=== PATIENT | female | born 1970 | race Caucasian/White ===

== ENCOUNTER 2017-10-06 11:28 | Day surgery (SDC) | payer BC ==
[~2017-10-06] VITALS: Ht 172.7 cm; Wt 74.8 kg
--- NOTE | ~2017-10-06 | OP ---
PATIENT NAME: TIFFANY MCCALLUM MEDICAL RECORD: [id number] :68 LOCATION:[facility] ADMISSION DATE: SURGEON: MARK BRIGGS DATE OF OPERATION: 10/06/2017 SURGEON: Mark Briggs DPM PREOPERATIVE DIAGNOSIS: Hallux abductovalgus deformity, right foot. POSTOPERATIVE DIAGNOSIS: Hallux abductovalgus deformity, right foot. PROCEDURE: Esteban bunionectomy, right foot. ANESTHESIA: Local with monitored anesthesia care. HEMOSTASIS: Pneumatic ankle tourniquet inflated to 250 mmHg for 41 minutes. ESTIMATED BLOOD LOSS: Minimal. MATERIALS: One 2.5 mm headless [employer] screw. INJECTABLES: 20 cc 0.5% bupivacaine plain. The patient has longstanding history of pain associated with a bunion deformity on the right foot. We have previously discussed surgical correction. We have reviewed risks and benefits and complications were reviewed. All questions were answered. She was appropriately consented for the above-mentioned procedure. DESCRIPTION OF PROCEDURE: The patient was brought in the operating room and placed on the operating table in a supine position. A timeout was called with Dr. Briggs, identified the patient's surgical site, and the surgery to be performed. Once appropriate anesthesia was obtained, the foot was prepped and draped in the usual aseptic manner. The pneumatic ankle tourniquet was inflated to 250 mmHg on the well-padded right ankle. Attention was directed to the dorsal aspect of the first metatarsophalangeal joint where a 6 cm linear incision was made just medial to the extensor hallucis longus tendon. This incision was carried deep to soft tissue with care being taken to retract all vital neurovascular structures. All bleeders were cauterized along the way. The first intermetatarsal space was sharply entered and the conjoined tendon of the adductor hallucis muscle was identified and sharply transected at the base of the proximal phalanx. The fibular sesamoidal ligament was also identified on the lateral aspect of the first metatarsal and it was sharply transected. Attention was then redirected to the dorsal aspect of the first metatarsophalangeal joint where the periosteum was reflected from the joint, thus exposing the hypertrophied medial eminence of the first metatarsal as well as the base of the proximal phalanx. Utilizing a sagittal saw, the hypertrophied medial eminence was removed. Next, utilizing a sagittal saw, a V-shaped osteotomy was created in the head of the first metatarsal. This was a through and through osteotomy with the apex oriented distally. The capital fragment was shifted laterally and impacted upon the first metatarsal shaft. Next, utilizing manufacture's recommended technique, one 2.5-mm screw was placed across the osteotomy. Excellent fixation was noted with placement of OPERATIVE REPORT [id number] TIFFANY MCCALLUM the screw. All remaining over hanging bone from the medial aspect of the first metatarsal shaft was removed with a sagittal saw. The foot was then loaded and the toe was noted to rest in a more rectus position. An intraoperative decision was then made to not perform the Leif osteotomy as that would likely perform excess of correction leading to hallux varus. The surgical site was then irrigated with copious amounts of normal sterile saline via bulb syringe. The surgery site was then reinvestigated and the toe was noted to be in a proper alignment. The periosteum was reapproximated and coapted utilizing 3-0 Vicryl. The subq was reapproximated and coapted using 4-0 Vicryl. The skin was reapproximated and coapted using 4-0 nylon. A dressing consisting of Xeroform, 4 x 4's, Kerlix, and Mervin bandage was applied to the right foot. The pneumatic ankle tourniquet was deflated and cap refill time was immediate to all digits of the right foot. The patient tolerated the procedure and anesthesia well. She left the operating room with vital signs stable and capillary refill time intact. The patient was discharged home with instructions to ice and elevate the right foot. She was dispensed a boot that she has utilized to offload the area. She was provided with prescriptions for Pettigrew 7.5/325 and Phenergan 25 mg. She has my cell phone number for any after hour difficulties and there were no complications with this procedure. TRANSINT:[id number] Voice Confirmation ID: [id number] DOCUMENT ID: [id number] MARK BRIGGS at 1126 CC: [id number] DICTATION DATE: 10/06/17 1542 WOOD GOUGER: 10/06/17 1627 [facility] 10/06/17 [place] [address]
[~2017-10-06 11:28] MED LIST: DESERYL100 MG PO; NEURONTIN600 MG PO
[2017-10-06 12:00] LABS: HEMATOCRIT 40.3 % (36.0-48.0); HEMOGLOBIN 13.5 g/dL (12-16); MCH 30.8 pg (26.0-34.0); MCHC 33.5 g/dL (31.0-37.0); MCV 91.8 fL (80.0-100.0); MEAN PLATELET VOLUME 10.1 fL (7.4-10.4); RBC 4.39 10x6/uL (4.00-5.40); RDW 13.9 % (11.5-14.5); WBC 7.5 10x3/uL (4.8-10.8)
[2017-10-06 13:22] VITALS: BP 101/57; Ht 172.7 cm; Wt 74.8 kg
== END 2017-10-06 17:15 | disposition home or self-care (01) ==
LOC: D.OPS 11:28 → D.PAN 12:30 → D.OPS 12:30
PROVIDERS: Anesthesiology
DX: M20.11 Hallux valgus (acquired), right foot (principal)